=== PATIENT | male | born 1990 | race Caucasian/White ===

== ENCOUNTER 2024-10-23 05:23 | Inpatient (IN) ==
[2024-10-14 13:40] LABS: Basophils # (Auto) 0.03 K/mcL (0.00-0.30); Basophils % (Auto) 0.4 % (0.0-2.0); Eosinophils % (Auto) 6.9 % (0.0-7.0); Hematocrit 44.5 % (40.1-51.0); Hemoglobin 14.4 g/dL (13.7-17.5); Lymphocytes # (Auto) 2.66 K/mcL (1.50-4.80); Lymphocytes % (Auto) 36.5 % (15.5-49.0); Mean Cell Volume 94.3 fL (80.0-100.0); Mean Corpuscular HGB Conc 32.4 g/dL (31.0-36.0); Monocytes # (Auto) 0.53 K/mcL (0.10-0.90); Monocytes % (Auto) 7.3 % (1.0-12.0); Neutrophils % (Auto) 48.9 % (38.0-78.0); Platelet Count 230 K/mcL (140-440); RBC 4.72 M/mcL (4.63-6.08); Red Cell Distribution Width 12.8 % (11.5-14.5); WBC 7.3 K/mcL (4.5-11.0)
[2024-10-14 13:55] LABS: INR 0.9 (0.9-1.1); Prothrombin Time 12.5 sec (11.9-14.5)
[2024-10-14 14:00] LABS: ALT/SGPT 21 U/L (<40); AST/SGOT 18 U/L (<40); Albumin 4.2 gm/dL (3.2-5.2); Albumin/Globulin Ratio 1.3 (1.0-2.3); Alkaline Phosphatase 99 U/L (39-117); Bilirubin,Total 0.4 mg/dL (0.1-1.0); Blood Urea Nitrogen 14 mg/dL (6-20); Calcium 9.5 mg/dL (8.6-10.4); Carbon Dioxide 27 mmol/L (22-30); Chloride 105 mmol/L (96-108); Globulin 3.2 gm/dL (2.2-3.7); Glomerular Filtration Rate 111; Glucose 93 mg/dL (70-105); Potassium 4.1 mmol/L (3.3-5.1); Sodium 143 mmol/L (133-145)
[2024-10-23] MEDS ORDERED: HYDROmorphone 0.5 MG/0.5 ML SYRINGE ONE (06:50)
[2024-10-23] MEDS ORDERED: SUGAMMADEX SODIUM 200 MG/2 ML VIAL IV ONE (06:51)
[2024-10-23] MEDS ORDERED: fentaNYL 100 MCG/2 ML VIAL ONE (06:51)
[2024-10-23] MEDS ORDERED: PROPOFOL 200 MG/20 ML VIAL IV ONE (06:51)
[2024-10-23] MEDS ORDERED: MIDAZOLAM 2 MG/2 ML VIAL ONE ×2 (06:51→08:13)
[2024-10-23] MEDS ORDERED: LIDOCAINE 2% PF 5 ML VIAL ONE (06:53)
[2024-10-23] MEDS ORDERED: GLYCOPYRROLATE 0.2 MG/ML VIAL IV ONE (06:53)
[2024-10-23] MEDS ORDERED: ONDANSETRON 4 MG/2 ML VIAL ONE (06:53)
[2024-10-23] MEDS ORDERED: DEXAMETHASONE 10 MG/ML VIAL ONE (06:53)
[2024-10-23] MEDS ORDERED: ROCURONIUM 10 MG/ML ML IV ONE (06:53)
[2024-10-23] MEDS ORDERED: DEXMEDETOMIDINE HCL 200 MCG/2 ML VIAL ONE (06:58)
[2024-10-23] MEDS: LEVOFLOXACIN 750 MG/150 ML BAG IV SCH (07:15)
[2024-10-23] MEDS ORDERED: KETAMINE 50 MG/ML Syringe IV ONE (07:51)
[2024-10-23] MEDS ORDERED: MAGNESIUM SULFATE 2 GM/50 ML BAG IV ONE (07:53)
[2024-10-23] MEDS ORDERED: PHENYLephrine 1 MG/10 ML SYRINGE (ANEST) ONE (08:00)
[2024-10-23] MEDS ORDERED: HYDROmorphone 0.5 MG/0.5 ML SYRINGE IV PRN (08:11)
[2024-10-23] MEDS ORDERED: METHOCARBAMOL 1,000 MG/10 ML VIAL IV PRN (08:11)
[2024-10-23] MEDS ORDERED: fentaNYL 100 MCG/2 ML VIAL IV PRN (08:11)
[2024-10-23] MEDS ORDERED: IPRATROPIUM/ALBUTEROL 3 ML AMPUL.NEB NEB PRN (08:11)
[2024-10-23] MEDS ORDERED: LORazepam 2 MG/ML VIAL IV PRN (08:48)
[2024-10-23] MEDS ORDERED: ALBUTEROL SULFATE 60 PUFF INHALER INH PRN (08:50)
[2024-10-23] MEDS: ACETAMINOPHEN 1,000 MG/100 ML BAG IV ONE (08:52)
[2024-10-23] MEDS: ONDANSETRON 4 MG/2 ML VIAL IV PRN (08:59)
[2024-10-23] MEDS: DOCUSATE SODIUM 100 MG CAPSULE PO SCH (09:36)
[2024-10-23] MEDS: LACTATED RINGERS 1,000 ML IV SCH (10:17)
[2024-10-23] MEDS: HYDROmorphone 0.5 MG/0.5 ML SYRINGE IV PRN (10:29)
[2024-10-23] MEDS: 0.9 % SODIUM CHLORIDE 10 ML SYRINGE IV SCH (15:12)
[2024-10-23] MEDS: ACETAMINOPHEN 1,000 MG/100 ML BAG IV SCH (15:12)
[2024-10-23] MEDS: GABAPENTIN 300 MG CAPSULE PO SCH (20:57)
[2024-10-24 05:17] VITALS: O2SAT 100
[2024-10-24 06:02] LABS: Basophils # (Auto) 0.02 K/mcL (0.00-0.30); Basophils % (Auto) 0.2 % (0.0-2.0); Eosinophils # (Auto) 0.04 K/mcL (0.00-0.70); Eosinophils % (Auto) 0.3 % (0.0-7.0); Hemoglobin 14.7 g/dL (13.7-17.5); Lymphocytes # (Auto) 2.29 K/mcL (1.50-4.80); Lymphocytes % (Auto) 18.5 % (15.5-49.0); Mean Cell Volume 94.1 fL (80.0-100.0); Mean Corpuscular HGB Conc 32.7 g/dL (31.0-36.0); Mean Platelet Volume 10.6 fL (8.8-12.5); Monocytes # (Auto) 0.79 K/mcL (0.10-0.90); Monocytes % (Auto) 6.4 % (1.0-12.0); Neutrophils % (Auto) 74.5 % (38.0-78.0); Platelet Count 232 K/mcL (140-440); RBC 4.78 M/mcL (4.63-6.08); WBC 12.4 K/mcL (4.5-11.0)
[2024-10-24 06:27] LABS: ALT/SGPT 65 U/L (<40); AST/SGOT 51 U/L (<40); Albumin 4.2 gm/dL (3.2-5.2); Albumin/Globulin Ratio 1.2 (1.0-2.3); Alkaline Phosphatase 98 U/L (39-117); Bilirubin,Direct 0.3 mg/dL (<0.3); Bilirubin,Total 0.7 mg/dL (0.1-1.0); Blood Urea Nitrogen 13 mg/dL (6-20); Calcium 9.5 mg/dL (8.6-10.4); Carbon Dioxide 25 mmol/L (22-30); Chloride 103 mmol/L (96-108); Globulin 3.4 gm/dL (2.2-3.7); Glomerular Filtration Rate 117; Glucose 99 mg/dL (70-105); Lactate Dehydrogenase 187 U/L (135-225); Phosphorous 3.4 mg/dL (2.5-4.5); Potassium 4.2 mmol/L (3.3-5.1); Sodium 140 mmol/L (133-145); Triglycerides 91 mg/dL (<150); Uric Acid 6.2 mg/dL (2.5-8.0)
[2024-10-24] MEDS: GABAPENTIN 100 MG CAPSULE PO ONE (10:12)
[2024-10-24 12:53] VITALS: TEMP 97.9
== END 2024-10-24 14:40 | disposition home or self-care (01) | DRG 419 ==
LOC: MEDSUR 05:23 → EDSTATUS 07:30
PROVIDERS: ADMIT Family Medicine Adult Medicine; ATTEND Family Medicine Adult Medicine